=== PATIENT | female | born 1935 | race Caucasian/White ===

== ENCOUNTER 2018-02-26 07:01 | Day surgery (SDC) | payer MEDICARE, OTHER ==
[~2018-02-26] VITALS: Ht 162.6 cm; Wt 75.1 kg
[~2018-02-26 07:01] MED LIST: ? CHOLESTEROL MED; ABAT250V; ACET325 PO; AMLO5 PO; ASPI81CH PO; CHOL10002; DIOVAN PO; Exforge 5-3201 EACH; FISH1000; FURO40 PO; LANS15EC PO; LEVSOD100 PO; LOSA25; LOSARTAN POTAS100 MG PO; LOVA20 PO; MEGARED OMEGA-1 EAC1 PO; MULTI VITAMIN1 EACH PO; OMEP20ER PO; Omeprazole20 M1 PO; [UNRECOGNIZED DRUG - REMARK]
== END 2018-02-26 09:42 | disposition home or self-care (01) ==
LOC: ORSCSDS 07:01
PROVIDERS: Internal Medicine Gastroenterology
PROC: 0DB58ZX Excision of Esophagus, Via Natural or Artificial Opening Endoscopic, Diagnostic (ICD-10-PCS; principal; 2018-02-26 08:30)
DX: K22.70 Barrett's esophagus without dysplasia (principal); I10 Essential (primary) hypertension; K21.9 Gastro-esophageal reflux disease without esophagitis; Z79.899 Other long term (current) drug therapy
CPT/HCPCS: 88305; J7120

== ENCOUNTER 2019-03-15 20:06 | Emergency (ER) | payer MEDICARE, OTHER ==
[~2019-03-15] VITALS: Ht 162.6 cm; Wt 74.8 kg
== END 2019-03-15 21:45 | disposition home or self-care (01) ==
LOC: ER 20:06
DX: S01.01XA Laceration without foreign body of scalp, initial encounter (principal); I48.91 Unspecified atrial fibrillation; I10 Essential (primary) hypertension; Z23 Encounter for immunization; Z88.8 Allergy status to other drugs, medicaments and biological substances; Z79.899 Other long term (current) drug therapy; W18.30XA Fall on same level, unspecified, initial encounter
CPT/HCPCS: 12002; 36415; 90471; 90714; 93005; 93010; 99283-25

== ENCOUNTER 2020-11-10 15:47 | Emergency (ER) | payer MEDICARE, OTHER ==
[~2020-11-10] VITALS: Ht 162.6 cm; Wt 74.8 kg
[2020-11-10] MEDS ORDERED: NEBI5 PO (16:12)
[2020-11-10 17:55] LABS: Source, Urine Clean Catch
[2020-11-10 18:06] LABS: Appearance, Urine Clear (Clear); Bilirubin, Urine Neg (Neg); Blood, Urine Neg (Neg); Color, Urine Yellow (P-Yellow); Glucose Qualitative, Urine Neg (Neg); Ketones, Urine Neg (Neg); Leukocyte Esterase, Urine 2+ (Neg); Nitrite, Urine Neg (Neg); Protein, Urine Neg (Neg); Urobilinogen, Urine NORM (Normal)
[2020-11-10 18:07] LABS: BASOPHILS ABSOLUTE AUTO 0.05 K/mm3 (0.00-0.23); BASOPHILS PERCENT AUTO 1 % (0-2); EOSINOPHILS ABSOLUTE AUTO 0.13 K/mm3 (0.00-0.68); EOSINOPHILS PERCENT AUTO 2 % (0-6); Hematocrit 42.2 % (33.0-51.0); Hemoglobin 13.9 g/dL (11.5-16.0); IMMATURE GRAN ABSOLUTE AUTO 0.02 K/mm3 (0.00-0.10); IMMATURE GRAN PERCENT AUTO 0 % (0-1); LYMPHOCYTES ABSOLUTE AUTO 1.59 K/mm3 (0.84-5.20); LYMPHOCYTES PERCENT AUTO 19 % (21-46); MONOCYTES ABSOLUTE AUTO 0.55 K/mm3 (0.16-1.47); MONOCYTES PERCENT AUTO 7 % (4-13); Mean Corpuscular HGB 30.2 pg (26.0-34.0); Mean Corpuscular HGB Conc 32.9 g/dL (31.5-36.5); Mean Corpuscular Volume 92 fL (80-100); NEUTROPHILS ABSOLUTE AUTO 6.06 K/mm3 (1.96-9.15); NEUTROPHILS PERCENT AUTO 72 % (41-73); RDW Coefficient Variation 12.6 % (11.7-14.2); RDW Standard Deviation 42.2 fL (35.1-46.3)
[2020-11-10 18:21] LABS: Mean Platelet Volume 11.6 fL (9.1-12.4); Platelet Count 183 K/mm3 (150-400)
[2020-11-10 18:24] LABS: Alanine Aminotransfer (ALT/SGP 20 U/L (12-78); Albumin, Blood 3.5 g/dL (3.4-5.0); Alk Phos 96 U/L (50-136); Anion Gap 4 mmol/L (6-16); Aspartate Aminotrans (AST/SGOT 26 U/L (12-37); Bilirubin, Total 0.7 mg/dL (0.1-1.0); Blood Urea Nitrogen 19 mg/dL (8-24); Bun/Creatinine Ratio 21.7 (12.0-20.0); CO2, Blood 30 mmol/L (21-32); Calcium, Blood 9.2 mg/dL (8.5-10.1); Chloride, Blood 112 mmol/L (98-108); Creatinine, Blood 0.88 mg/dL (0.40-1.00); Globulin, Blood 3.4 g/dL (2.2-4.0); Glomerular Filtration Rate >60 (60-); Glucose, Blood 101 mg/dL (70-99); Potassium, Blood 4.5 mmol/L (3.5-5.5); Sodium, Blood 146 mmol/L (136-145); Total Protein, Blood 6.9 g/dL (6.4-8.2); Troponin I <0.015 ng/mL (0.000-0.040)
[2020-11-10 18:31] LABS: Bacteria Few /hpf; Red Blood Cells, Urine 0-2 /hpf (0-2); Squamous Epithelial Cells Many /hpf (Few)
== END 2020-11-10 19:51 | disposition home or self-care (01) ==
LOC: ER 15:47
PROVIDERS: Physician Assistant
DX: R00.1 Bradycardia, unspecified (principal); I10 Essential (primary) hypertension; I48.91 Unspecified atrial fibrillation; K21.9 Gastro-esophageal reflux disease without esophagitis; E03.9 Hypothyroidism, unspecified
CPT/HCPCS: 71045; 80053; 81001; 84484; 85025; 87077; 87086; 87186; 93005; 93010; 99285-25; A9270; J7030

== ENCOUNTER 2020-11-13 17:09 | Emergency (ER) | payer MEDICARE, OTHER ==
[~2020-11-13] VITALS: Ht 162.6 cm; Wt 74.8 kg
[~2020-11-13 17:09] MED LIST changes: +NEBI5 PO
[2020-11-13 17:42] LABS: BASOPHILS ABSOLUTE AUTO 0.07 K/mm3 (0.00-0.23); BASOPHILS PERCENT AUTO 1 % (0-2); EOSINOPHILS PERCENT AUTO 1 % (0-6); Hematocrit 42.7 % (33.0-51.0); Hemoglobin 14.4 g/dL (11.5-16.0); IMMATURE GRAN ABSOLUTE AUTO 0.03 K/mm3 (0.00-0.10); IMMATURE GRAN PERCENT AUTO 0 % (0-1); LYMPHOCYTES ABSOLUTE AUTO 1.19 K/mm3 (0.84-5.20); LYMPHOCYTES PERCENT AUTO 14 % (21-46); MONOCYTES ABSOLUTE AUTO 0.37 K/mm3 (0.16-1.47); MONOCYTES PERCENT AUTO 4 % (4-13); Mean Corpuscular HGB 30.6 pg (26.0-34.0); Mean Corpuscular HGB Conc 33.7 g/dL (31.5-36.5); Mean Corpuscular Volume 91 fL (80-100); Mean Platelet Volume 10.8 fL (9.1-12.4); NEUTROPHILS ABSOLUTE AUTO 6.66 K/mm3 (1.96-9.15); NEUTROPHILS PERCENT AUTO 79 % (41-73); Platelet Count 260 K/mm3 (150-400); RDW Coefficient Variation 12.6 % (11.7-14.2); RDW Standard Deviation 41.6 fL (35.1-46.3); White Blood Cell Count 8.42 K/mm3 (4.00-11.30)
[2020-11-13 17:59] LABS: Albumin, Blood 3.6 g/dL (3.4-5.0); Albumin/Globulin Ratio 0.9 (0.8-1.8); Bilirubin, Total 0.8 mg/dL (0.1-1.0); Bun/Creatinine Ratio 18.6 (12.0-20.0); Calcium, Blood 9.3 mg/dL (8.5-10.1); Creatinine, Blood 1.13 mg/dL (0.40-1.00); Globulin, Blood 3.8 g/dL (2.2-4.0); Potassium, Blood 3.8 mmol/L (3.5-5.5); Total Protein, Blood 7.4 g/dL (6.4-8.2)
[2020-11-13 19:43] LABS: Source, Urine Clean Catch
[2020-11-13 19:59] LABS: Bilirubin, Urine Neg (Neg); Blood, Urine Neg (Neg); Glucose Qualitative, Urine Neg (Neg); Ketones, Urine Neg (Neg); Leukocyte Esterase, Urine Neg (Neg); Nitrite, Urine Neg (Neg); Protein, Urine Neg (Neg); Urobilinogen, Urine NORM (Normal)
[2020-11-13 20:04] LABS: Appearance, Urine Clear (Clear); Color, Urine Yellow (P-Yellow)
[2020-11-13] MEDS ORDERED: LEVSOD112 PO (20:14)
[2020-11-13] MEDS ORDERED: LOSA25 PO (20:15)
== END 2020-11-13 22:44 | disposition home or self-care (01) ==
LOC: ER 17:09
PROVIDERS: Physician Assistant
DX: K59.00 Constipation, unspecified (principal); I10 Essential (primary) hypertension; I48.91 Unspecified atrial fibrillation; K21.9 Gastro-esophageal reflux disease without esophagitis; E03.9 Hypothyroidism, unspecified; Z79.899 Other long term (current) drug therapy; Z91.018 Allergy to other foods; Z88.8 Allergy status to other drugs, medicaments and biological substances
CPT/HCPCS: 36415; 74022; 80053; 81003; 83690; 84484; 85025; 93005; 93010; 96361; 96374; 99284-25; A9270; J2405; J7030

== ENCOUNTER 2022-02-09 17:00 | Observation (INO) | payer MEDICARE, OTHER ==
[~2022-02-09] VITALS: Ht 162.6 cm; Wt 68.6 kg
[~2022-02-09 17:00] MED LIST changes: +LEVSOD112 PO; +LOSA25 PO
[2022-02-10 04:39] LABS: BASOPHILS ABSOLUTE AUTO 0.04 K/mm3 (0.00-0.23); BASOPHILS PERCENT AUTO 1 % (0-2); EOSINOPHILS ABSOLUTE AUTO 0.21 K/mm3 (0.00-0.68); EOSINOPHILS PERCENT AUTO 3 % (0-6); Hematocrit 37.2 % (33.0-51.0); Hemoglobin 12.2 g/dL (11.5-16.0); IMMATURE GRAN ABSOLUTE AUTO 0.03 K/mm3 (0.00-0.10); IMMATURE GRAN PERCENT AUTO 0 % (0-1); LYMPHOCYTES ABSOLUTE AUTO 1.44 K/mm3 (0.84-5.20); LYMPHOCYTES PERCENT AUTO 18 % (21-46); MONOCYTES ABSOLUTE AUTO 0.51 K/mm3 (0.16-1.47); MONOCYTES PERCENT AUTO 7 % (4-13); Mean Corpuscular HGB 30.7 pg (26.0-34.0); Mean Corpuscular HGB Conc 32.8 g/dL (31.5-36.5); Mean Corpuscular Volume 94 fL (80-100); NEUTROPHILS ABSOLUTE AUTO 5.65 K/mm3 (1.96-9.15); NEUTROPHILS PERCENT AUTO 72 % (41-73); Platelet Count 192 K/mm3 (150-400); RDW Coefficient Variation 12.8 % (11.7-14.2); RDW Standard Deviation 44.3 fL (35.1-46.3); Red Blood Cell Count 3.98 M/mm3 (3.80-5.20); White Blood Cell Count 7.88 K/mm3 (4.00-11.30)
[2022-02-10 05:00] LABS: Albumin, Blood 2.9 g/dL (3.4-5.0); Bilirubin, Total 1.2 mg/dL (0.1-1.0); Calcium, Blood 8.6 mg/dL (8.5-10.1); Creatinine, Blood 0.89 mg/dL (0.40-1.00); Globulin, Blood 2.9 g/dL (2.2-4.0); Potassium, Blood 3.5 mmol/L (3.5-5.5); Total Protein, Blood 5.8 g/dL (6.4-8.2)
--- NOTE | 2022-02-10 05:12 | NUR ---
SHIFT SUMMARY ASSUMED CARE OF PT AROUND 0030. PT TIS A/OX4 BUT KAIBAB. LUNG SOUNDS CLEAR. HEART SOUNDS REGULAR. PT HAS PAIN ALL ALONG THE R SIDE OF HER BODY. PT HAS SHOULDER PAIN AND PAIN IN HER R HIP WITH MOVEMENT. PT HAS BRUSING ON HER R SIDE. PT SLEPT T/O THE NIGHT.
[2022-02-10] MEDS ORDERED: FURO20 PO (15:04)
--- NOTE | 2022-02-10 17:34 | NUR ---
SHIFT SUMMARY PATIENT MEDICATED FOR PAIN X2. PATIENT DENIES NAUSEA AND SHORTNESS OF BREATH. PATIENT WORKED WITH PT AND OT TODAY. PATIENT IS A 2P TO TRANSFER. BOT THERAPIES ARE RECOMMENDING SNF. PATIENT SLEPT ON AND OFF THIS SHIFT. PATIENT DAUGHTER VISITED THIS AFTERNOON. PATIENT IS EATING AND DRINKING WELL. PATIENT IS PLEASANT AND COOPERATIVE WITH CARE.
--- NOTE | 2022-02-11 05:40 | NUR ---
PT IS A/O, VERY HEAVY 2 ASSIST TO BSC THIS SHIFT, LARGE BM. PT REFUSED PURWICK, WEARING ATTENDS. SCHEDULED PAIN MEDICATION.
--- NOTE | 2022-02-11 08:00 | NUR ---
PT PLEASANT. VERY [place]. PAIN MANAGEABLE AT THIS TIME. SCHEDULED PAIN MEDS PER EMAR. A/O X3 STATES WORKED AT [employer], IN [place]. HR REG, NO MURMUR NOTED. NO TELE. LUNGS CLEAR, RESP EASY, UNLABORED. SITTING UP IN BED. ON R.A. BT X4 LAST BM YEST PER PT . VOIDS 2 MA ASST TO BSC. STATES THAT PAIN GOES UP A LOT AT TRANSFER TIMES. THEN WILL COME BACK DOWN. BED IN LOW POSITION, CALL LITE IN REACH, CALLS APPROP
--- NOTE | 2022-02-11 15:00 | NUR ---
PT REFUSING PN MEDS. WAS ASLEEP. WOKE TO GIVE. SHE REQUEST LATER TODAY, PER HPS AFTER DINNER. SPOKE TO DR VALENCIA. OKAYED MOVE TO BID. HAS OTHER MEDS FOR BREAK THROUGH.
--- NOTE | 2022-02-11 16:29 | NUR ---
PT PLEASANT TODAY. REFUSED 3PM PAIN PILL. REQUEST MORE TOWARDS DINNER TIME. AGREED. SPOKE TO DR. GARCIA BID. DID GET PT UP 2 ASST TO BSC. TOLERATED WELL WITH NO EXTRA PAIN MED NEED. PT REALLY WANTED HER DOG TO COME VISIT. AGREED. SHE TO CALL DAUGHTER TO BRING IN. NO OTHER CONCERNS NOTED. BED IN LOW POSITION, CALL LITE IN REACH, CALLS APPROP
--- NOTE | 2022-02-12 05:44 | NUR ---
PT IS A/O [place], PELVIC FX, INCONTINENT AT TIME, WEARING ATTENDS. SCHEDULED PAIN MEDS. HX OF FALL AT HOME.
--- NOTE | 2022-02-12 08:00 | NUR ---
PT PLEASANT COOP A/O. STATES PAIN BETTER OVERALL. NOT WALKED YET TODAY. FELT TRAMADOL MADE HER TOO SEDATE. TRYING MOTRIN. H/R REG, NO MURMUR NOTED. NO TELE. LUNGS CLEAR, RESP EASY, UNLABORED. ON R.A. BT X4 LAST BM DAY BEFORE YEST. MIRALAX GIVENPER EMAR. VIODS INCONT. ATTENDS IN PLACE [facility]I AT THIS TIME. BED IN LOW POSITION, CALL LITE IN REACH, CALLS APPROP
--- NOTE | 2022-02-12 08:33 | NUR ---
PT STATES FEELS TRAMADOL MAKES HER FEEL SEDATED. REQUESTED TRY MOTRIN INSTEAD. DONE.
--- NOTE | 2022-02-12 17:52 | NUR ---
THIS WRITE TOOK OVER CARE AT 1525. PT AO AND COOPERATIVE OF CARE. TREATED FOR PAIN PER EMAR. NO DISTRESS NOTED AT THIS TIME CALL LIGHT IS WITHIN REACH WILL CONTINUE TO MONITOR.
--- NOTE | 2022-02-13 05:03 | NUR ---
PT IS A/O, FORGETFUL, PELVIC FX FROM FALL. INCONTINENT OF URINE, PT HAD XL BM THIS SHIFT USING BEDPAN. PURWICK PLACED FOR PT COMFORTTHIS SHIFT.
--- NOTE | 2022-02-13 17:16 | NUR ---
SHIFT SUMMARY PT WORKED WITH THERAPY TODAY. UP TO CHAIR TWICE. PT TOLERATING TRANSFER [place] [facility] [place]. PT HAS BEEN CONTINENT T/O SHIFT. PT TRANSFERED IMPROVED FROM THIS AM AND UPGRADED TO A 1P ASSIST PER PHYSICAL THERAPY. NO OTHER ACUTE CHANGES IN ASSESSMENT AT THIS TIME. VS REVIEWED. PT RESTING IN BED. CALL LIGHT IN REACH. DENIES OTHER NEEDS AT THIS TIME. MEDICATED WITH TYLENOL PER EMAR.
--- NOTE | 2022-02-13 17:49 | NUR ---
Met with pt at bedside. She is stoic, rates her pain at a 7/10 and calls it "doable". She's up abmulating with PT at this time. states when she "isn't moving at all, she states. No changes to care plan at this time.
--- NOTE | 2022-02-14 05:01 | NUR ---
PT MEDICATED THIS SHIFT FOR PAIN FROM PELVIC FX FROM A FALL. PT USED BEDPAN THIS SHIFT, WEARING ATTENDS. PT IS CONT/INCONTINENT. MESA GRANDE PLEASANT. REFUSED PURWICK THIS SHIFT.
[2022-02-14] MEDS ORDERED: Acetaminophen650 M1 PO (16:14)
[2022-02-14] MEDS ORDERED: MIRALAX17 GM PO (16:15)
[2022-02-14] MEDS ORDERED: TRAM50 PO (16:15)
[2022-02-14 16:50] LABS: Influenza A, PCR NEGATIVE (NEGATIVE); Influenza B, PCR NEGATIVE (NEGATIVE); Resp Syncytial Virus, PCR NEGATIVE (NEGATIVE); SARS-Cov-2 (COVID-19) PCR, MMC NEGATIVE (NEGATIVE)
--- NOTE | 2022-02-14 17:39 | NUR ---
DISCHARGE PT DISCHARGED TO [facility]. REPORT CALLED TO NURSE PARIKH AT [facility]. PT MORE FATIGUED AND FORGETFUL TODAY, BUT EASILY RE-ORIENTED. CLEARED BY ORTHO TODAY. TRANSFERING WELL WITH 1P ASSIST TODAY. NO OTHER ACUTE CHAGNES IN ASSESSMENT AT THIS TIME. VS REVIEWED PRIOR TO DC. BELONGINGS SENT WITH PT & DAUGHTER VICKY NOTIFIED OF DEPARTURE.
== END 2022-02-14 17:38 ==
LOC: ER 17:00 → MEDS 17:01 → ER 23:58 → MEDS 23:58
PROVIDERS: Internal Medicine; ADMIT Internal Medicine
DX: S32.591A Other specified fracture of right pubis, initial encounter for closed fracture (principal); S32.511A Fracture of superior rim of right pubis, initial encounter for closed fracture; S32.601A Unspecified fracture of right ischium, initial encounter for closed fracture; S32.19XA Other fracture of sacrum, initial encounter for closed fracture; W18.30XA Fall on same level, unspecified, initial encounter; I10 Essential (primary) hypertension; E03.9 Hypothyroidism, unspecified; I48.91 Unspecified atrial fibrillation; K21.9 Gastro-esophageal reflux disease without esophagitis; Z88.8 Allergy status to other drugs, medicaments and biological substances; Z91.018 Allergy to other foods; Z96.651 Presence of right artificial knee joint; M12.9 Arthropathy, unspecified; Z20.822 Contact with and (suspected) exposure to COVID-19
CPT/HCPCS: 0241U; 36415; 70450; 72192; 73030; 73502; 80053; 85025; 97110; 97110-CQ; 97116; 97162; 97166; 97530; 97530-CO; 97530-CQ; 97535; 97535-CO; 99285-25; A9270; J1650; J7030

== ENCOUNTER 2022-07-27 10:37 | Day surgery (SDC) | payer MEDICARE, OTHER ==
[~2022-07-27] VITALS: Ht 160 cm; Wt 59.0 kg
[~2022-07-27 10:37] MED LIST changes: +Acetaminophen650 M1 PO; +BUSP5 PO; +FLUO10 PO; +FURO20 PO; +MIRALAX17 GM PO; +TRAM50 PO
== END 2022-07-27 13:48 | disposition home or self-care (01) ==
LOC: ORSCSDS 10:37
PROVIDERS: Internal Medicine Gastroenterology
PROC: 0DB58ZX Excision of Esophagus, Via Natural or Artificial Opening Endoscopic, Diagnostic (ICD-10-PCS; principal; 2022-07-27 12:00)
PROC: 0DD58ZX Extraction of Esophagus, Via Natural or Artificial Opening Endoscopic, Diagnostic (ICD-10-PCS; principal; 2022-07-27 12:00)
PROC: 0D758ZZ Dilation of Esophagus, Via Natural or Artificial Opening Endoscopic (ICD-10-PCS; principal; 2022-07-27 12:00)
DX: R13.10 Dysphagia, unspecified (principal); K22.70 Barrett's esophagus without dysplasia; K21.9 Gastro-esophageal reflux disease without esophagitis; I12.9 Hypertensive chronic kidney disease with stage 1 through stage 4 chronic kidney disease, or unspecified chronic kidney disease; N18.30 Chronic kidney disease, stage 3 unspecified; E03.9 Hypothyroidism, unspecified; Z79.899 Other long term (current) drug therapy
CPT/HCPCS: 88305; 88312; J2704; J7120

== ENCOUNTER 2022-12-08 19:47 | Emergency (ER) | payer MEDICARE, OTHER ==
[~2022-12-08] VITALS: Ht 162.6 cm; Wt 56.7 kg
[2022-12-08 19:57] VITALS: BP 131/82
== END 2022-12-08 22:32 | disposition home or self-care (01) ==
LOC: ER 19:47
DX: S01.01XA Laceration without foreign body of scalp, initial encounter (principal); W18.30XA Fall on same level, unspecified, initial encounter; Z88.8 Allergy status to other drugs, medicaments and biological substances; Z79.899 Other long term (current) drug therapy; I10 Essential (primary) hypertension; K21.9 Gastro-esophageal reflux disease without esophagitis; E03.9 Hypothyroidism, unspecified
CPT/HCPCS: 70450; 99283-25

== ENCOUNTER 2023-06-26 22:26 | Emergency (ER) | payer OTHER, MEDICARE ==
[~2023-06-26] VITALS: Ht 162.6 cm; Wt 59.0 kg
[2023-06-26 23:33] LABS: BASOPHILS ABSOLUTE AUTO 0.05 K/mm3 (0.00-0.23); BASOPHILS PERCENT AUTO 1 % (0-2); EOSINOPHILS ABSOLUTE AUTO 0.14 K/mm3 (0.00-0.68); EOSINOPHILS PERCENT AUTO 2 % (0-6); Hematocrit 39.2 % (33.0-51.0); IMMATURE GRAN ABSOLUTE AUTO 0.02 K/mm3 (0.00-0.10); IMMATURE GRAN PERCENT AUTO 0 % (0-1); LYMPHOCYTES ABSOLUTE AUTO 2.26 K/mm3 (0.84-5.20); LYMPHOCYTES PERCENT AUTO 28 % (21-46); MONOCYTES ABSOLUTE AUTO 0.53 K/mm3 (0.16-1.47); MONOCYTES PERCENT AUTO 7 % (4-13); Mean Corpuscular HGB 30.6 pg (26.0-34.0); Mean Corpuscular HGB Conc 33.2 g/dL (31.5-36.5); Mean Corpuscular Volume 92 fL (80-100); Mean Platelet Volume 11.5 fL (9.1-12.4); NEUTROPHILS ABSOLUTE AUTO 5.05 K/mm3 (1.96-9.15); NEUTROPHILS PERCENT AUTO 63 % (41-73); Platelet Count 244 K/mm3 (150-400); RDW Coefficient Variation 12.9 % (11.7-14.2); RDW Standard Deviation 43.6 fL (35.1-46.3); Red Blood Cell Count 4.25 M/mm3 (3.80-5.20); White Blood Cell Count 8.05 K/mm3 (4.00-11.30)
[2023-06-26 23:46] LABS: Albumin, Blood 3.5 g/dL (3.4-5.0); Albumin/Globulin Ratio 1.1 (0.8-1.8); Bilirubin, Total 0.6 mg/dL (0.1-1.0); Bun/Creatinine Ratio 25.7 (12.0-20.0); Calcium, Blood 9.3 mg/dL (8.5-10.1); Creatinine, Blood 0.86 mg/dL (0.40-1.00); Globulin, Blood 3.3 g/dL (2.2-4.0); Potassium, Blood 3.8 mmol/L (3.5-5.5); Total Protein, Blood 6.8 g/dL (6.4-8.2)
[2023-06-27 03:16] VITALS: BP 164/78
== END 2023-06-27 03:18 | disposition home or self-care (01) ==
LOC: ER 22:26
PROVIDERS: Emergency Medicine
DX: S06.0XAA Concussion with loss of consciousness status unknown, initial encounter (principal); S01.01XA Laceration without foreign body of scalp, initial encounter; I10 Essential (primary) hypertension; E03.9 Hypothyroidism, unspecified; W01.190A Fall on same level from slipping, tripping and stumbling with subsequent striking against furniture, initial encounter
CPT/HCPCS: 12002; 70450; 71045; 72125; 80053; 85025; 86850; 86900; 86901; 90471; 90714; 90715; 93005; 93010; 99285-25